=== PATIENT | female | born 2000 | race Caucasian/White ===

== ENCOUNTER 2019-09-22 19:14 | Emergency (ER) | payer OTHER ==
[~2019-09-22] VITALS: Ht 154.9 cm; Wt 79.4 kg
[2019-09-22 19:24] VITALS: Ht 154.9 cm; Wt 79.4 kg
[2019-09-22 20:07] VITALS: BP 141/84
== END 2019-09-22 20:07 | disposition home or self-care (01) ==
LOC: ED 19:14
DX: J45.901 Unspecified asthma with (acute) exacerbation (principal); Z20.828 Contact with and (suspected) exposure to other viral communicable diseases
CPT/HCPCS: U0003-CS